=== PATIENT | female | born 1995 | race Caucasian/White ===

== ENCOUNTER 2023-04-11 20:24 | Emergency (ER) | payer OTHER ==
[~2023-04-11] VITALS: Ht 167.6 cm; Wt 70.7 kg
[2023-04-11 20:25] VITALS: TEMP 98.7
[2023-04-11] MEDS ORDERED: KETOROLAC 30 MG/ML 1ML VIAL IM ONE (22:25)
[2023-04-11] MEDS ORDERED: METH-1164 PO (22:26)
[2023-04-11 22:32] VITALS: BP 117/76; O2SAT 99
== END 2023-04-11 22:38 | disposition home or self-care (01) ==
LOC: M ED 20:24
DX: M54.50 Low back pain, unspecified (principal); V43.52XA Car driver injured in collision with other type car in traffic accident, initial encounter; Y92.9 Unspecified place or not applicable; Y93.9 Activity, unspecified; Y99.9 Unspecified external cause status
CPT/HCPCS: 72110; 84702; 96372; 99283; J1885